=== PATIENT | male | born 1990 | race Caucasian/White ===

== ENCOUNTER 2017-10-01 03:57 | Emergency (ER) | payer BC ==
[2017-10-01] MEDS ORDERED: NS 0.9% 1000 ML* 1,000 ML IV ONE (04:10)
[2017-10-01] MEDS ORDERED: Metoclopramide IV* 5 MG/ML 2 ML VIAL IV SLOW PU ONE (04:11)
[2017-10-01] MEDS ORDERED: Diphenoxylat/Atrop 2.5-0.025M* 1 TAB PO ONE (04:11)
--- NOTE | 2017-10-01 04:13 | ED ---
Abdominal Pain/Male - HPI Summary HPI Summary: This patient is a 27 year old M presenting to ED with a chief complaint of lower abdominal/L flank pain since 0145 this morning. The patient rates the pain 3/10 in severity. Symptoms aggravated by nothing. Symptoms alleviated by Ibuprofen. Patient reports N/V/D and lower back pain and swelling. The patient reports he did not have dinner last night. - History of Current Complaint Chief Complaint: EDAbdPain Stated Complaint: FLANK PAIN Time Seen by Provider: 10/01/17 04:06 Hx Obtained From: Patient Onset/Duration: Sudden Onset, Lasting Hours, Still Present Timing: Constant, Lasting Hours Severity Initially: Moderate Severity Currently: Moderate Pain Intensity: 7 Pain Scale Used: 0-10 Numeric Location: Other - lower abdominal pain and L flank Aggravating Factor(s): Nothing Alleviating Factor(s): OTC Analgesics - ibuprofen Associated Signs And Symptoms: Positive: Other - Patient reports N/V/D and lower back pain and swelling. - Allergies/Home Medications Allergies/Adverse Reactions: Allergies Allergy/AdvReac Type Severity Reaction Status Date / Time No Known Allergies Allergy Verified 10/01/17 04:05 PMH/Surg Hx/FS Hx/Imm Hx Endocrine/Hematology History: Denies: Hx Diabetes Cardiovascular History: Denies: Hx Coronary Artery Disease, Hx Hypertension Infectious Disease History: No Infectious Disease History: Denies: Traveled Outside the [place] in Last 30 Days - Family History Known Family History: Positive: Diabetes Negative: Cardiac Disease, Hypertension - Social History Alcohol Use: Rare Substance Use Type: Reports: None Smoking Status (MU): Never Smoked Tobacco Review of Systems Positive: Abdominal Pain - lower abdominal/L flank pain , Vomiting, Diarrhea, Nausea Positive: Other - lower back pain and swelling All Other Systems Reviewed And Are Negative: Yes Physical Exam - Summary Physical Exam Summary: VITAL SIGNS: Reviewed. GENERAL: Patient is a well-developed and nourished MALE who is lying comfortable in the stretcher. Patient is not in any acute respiratory distress. HEAD AND FACE: No signs of trauma. No ecchymosis, hematomas or skull depressions. No sinus tenderness. EYES: PERRLA, EOMI x 2, No injected conjunctiva, no nystagmus. EARS: Hearing grossly intact. Ear canals and tympanic membranes are within normal limits. MOUTH: Oropharynx within normal limits. NECK: Supple, trachea is midline, no adenopathy, no JVD, no carotid bruit, no c- spine tenderness, neck with full ROM. CHEST: Symmetric, no tenderness at palpation LUNGS: Clear to auscultation bilaterally. No wheezing or crackles. CVS: Regular rate and rhythm, S1 and S2 present, no murmurs or gallops appreciated. ABDOMEN: Soft, non-tender. No signs of distention. No rebound no guarding, and no masses palpated. Bowel sounds are normal. EXTREMITIES: FROM in all major joints, no edema, no cyanosis or clubbing. NEURO: Alert and oriented x 3. No acute neurological deficits. Speech is normal and follows commands. SKIN: Dry and warm Triage Information Reviewed: Yes Vital Signs On Initial Exam: Initial Vitals Temp Pulse Resp BP Pulse Ox 96.1 F 54 16 134/70 100 10/01/17 03:59 10/01/17 03:59 10/01/17 03:59 10/01/17 03:59 10/01/17 03:59 Vital Signs Reviewed: Yes Diagnostics - Vital Signs Vital Signs Temp Pulse Resp BP Pulse Ox 10/01/17 03:59 96.1 F 54 16 134/70 100 - Laboratory Result Diagrams: 10/01/17 04:20 10/01/17 04:20 Lab Statement: Any lab studies that have been ordered have been reviewed, and results considered in the medical decision making process. Re-Evaluation - Re-Evaluation First Eval Re-Evaluation Time: 05:50 Comment: The patient feels better. Discussed discharge plan with the patient. Abdominal Pain Fem Course/Dx - Course Assessment/Plan: This patient is a 27 year old M presenting to ED with a chief complaint of lower abdominal/L flank pain since 0145 this morning. In the ED course, the patient was given Lomotil, Reglan, and fluids. The patient will be discharged with Rx Reglan and Dx of gastroenteritis. The patient is agreeable with this plan. - Diagnoses Differential Diagnosis/HQI/PQRI: Other - gastroenteritis Provider Diagnoses: Gastroenteritis Discharge - Sign-Out/Discharge Documenting (check all that apply): Patient Departure - Discharge Plan Condition: Stable Disposition: HOME Prescriptions: Metoclopramide TAB* [Reglan TAB*] 10 mg PO Q6H PRN #14 tab PRN Reason: Nausea/Vomiting Patient Education Materials: Gastroenteritis (ED) Referrals: Non Staff,Doctor [Medical Doctor] - (Follow up with your primary care physician in 1-2 days.) Additional Instructions: RETURN TO THE EMERGENCY DEPARTMENT FOR CHANGING OR WORSENING SYMPTOMS.
[2017-10-01 04:33] LABS: ABS Basophils 0 10^3/ul (0-0.2); ABS Eosinophils 0.1 10^3/ul (0-0.6); ABS Lymphocytes 1.7 10^3/ul (1.0-4.8); ABS Monocytes 0.3 10^3/ul (0-0.8); ABS Neutrophils 6.7 10^3/ul (1.5-7.7); ABS Nucleated RBC 0 10^3/ul; Eosinophil % 1.1 % (0-6); Hematocrit 40 % (42-52); Hemoglobin 13.3 g/dl (14.0-18.0); Lymphocyte % 19.1 % (25-47); Mean Corpuscular HGB Conc 34 g/dl (31-36); Mean Corpuscular Hemoglobin 29 pg (27-31); Mean Corpuscular Volume 86 fL (80-94); Mean Platelet Volume 9.1 um3 (7.4-10.4); Nucleated Red Blood Cells % 0; Platelet Count 246 10^3/ul (150-450); Red Blood Count 4.57 10^6/ul (4.00-5.40); Red Cell Distribution Width 13 % (10.5-15); White Blood Count 8.8 10^3/ul (3.5-10.8)
[2017-10-01 04:48] LABS: Urine Appearance Clear; Urine Blood Negative (Negative); Urine Color Yellow; Urine Ketones Negative (Negative); Urine Protein Negative (Negative); Urine Specific Gravity 1.029 (1.010-1.030); Urine Urobilinogen Negative (Negative)
[2017-10-01 04:48] LABS: EGFR Non-African American 71.3 (>60)
[2017-10-01] MEDS ORDERED: Ketorolac INJ* 30 MG/ML 1 ML VIAL IV PUSH ONE (05:06)
[2017-10-01 06:14] VITALS: BP 132/84
== END 2017-10-01 06:14 | disposition home or self-care (01) ==
LOC: ED 03:57
DX: K52.9 Noninfective gastroenteritis and colitis, unspecified (principal)
CPT/HCPCS: 36415; 80053; 81003; 83605; 83690; 83735; 85025; 86140; 96374; 96375; 99282; A9270-GY; J1885; J2765

== ENCOUNTER 2018-12-18 12:02 | Emergency (ER) | payer BC, OTHER ==
--- OUTSIDE RECORDS SUMMARY | 2018-12-18 13:04 | XMS REPORT | Continuity of Care Document ---
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 Medicine Problems Description No Information Available Social History Type Date Description Comments Sex Unknown Tobacco Use Start: Unknown Nonsmoker Smoking Status Reviewed: 12/03/18 Nonsmoker Allergies, Adverse Reactions, Alerts Description No Known Drug Allergies Medications Description No Active Medications Immunizations Description No Information Available Vital Signs Date Vital Result Comment 12/03/2018 12:59pm BP Systolic 130 mmHg BP Diastolic 70 mmHg Heart Rate 74 /min Body Temperature 98.6 F Respiratory Rate 16 /min Height 68 inches 5'8" Weight 285.00 lb BMI (Body Mass Index) 43.3 kg/m2 04/02/2017 2:09pm BP Systolic 142 mmHg BP Diastolic 72 mmHg Heart Rate 68 /min Body Temperature 98.6 F Height 68 inches 5'8" Weight 277.00 lb BMI (Body Mass Index) 42.1 kg/m2 Results Description No Information Available Procedures Description No Information Available Medical Devices Description No Information Available Encounters Description No Information Available Assessments Date Code Description Provider 12/03/2018 Z00.00 Encounter for general adult medical Pernell Izquierdo MD examination without abnormal findings 12/03/2018 Z68.41 Body mass index (BMI) 40.0-44.9, adult Pernell Izquierdo MD Plan of Treatment 12/03/2018 - Pernell Izquierdo MDZ00.00 Encounter for general adult medical examination without abnormal [id number] Body mass index (BMI) 40.0-44.9, adultAllComments:Medication Management Patient Understands medications he's taking? Yes No Are there Barriersto Adherence? Yes No Has the patient been asked about herbal supplements and therapies, and OTC meds? Yes No Functional Status Description No Information Available Mental Status Description No Information Available Referrals Refer to Reason for Referral Status Appt Date [facility] Bariatric surgery consult. LT Created [address] [facility] [facility] [place] [address] [phone]
--- NOTE | 2018-12-18 13:31 | ED ---
Skin Complaint - HPI Summary HPI Summary: Pt. is a 28 y.o male who presents to the ER for evaluation of right hand injury. Pt. states at work today a tubbing broke and Freon sprayed onto his right dorsal hand. Pt. immediately washed hand. Pt. denies exposure to face or mouth. Pt. denies pain, redness, swelling, blistering. Sxs are mild in severity. Pt. notes a small area of tingling in between 2nd and 3rd digits. Incident happened about 2 hours ago. - History of Current Complaint Chief Complaint: EDExtremityUpper Time Seen by Provider: 12/18/18 12:58 Stated Complaint: FREON EXPOSURE PER PT Hx Obtained From: Patient Pain Intensity: 0 - Allergy/Home Medications Allergies/Adverse Reactions: Allergies Allergy/AdvReac Type Severity Reaction Status Date / Time No Known Allergies Allergy Verified 10/01/17 04:05 Home Medications: Home Medications NK [No Home Medications Reported] 12/18/18 [History Confirmed 12/18/18] PMH/Surg Hx/FS Hx/Imm Hx Previously Healthy: Yes Endocrine/Hematology History: Denies: Hx Diabetes Cardiovascular History: Denies: Hx Coronary Artery Disease, Hx Hypertension Infectious Disease History: No Infectious Disease History: Denies: Traveled Outside the [place] in Last 30 Days - Family History Known Family History: Positive: Diabetes, Non-Contributory Negative: Cardiac Disease, Hypertension - Social History Occupation: Employed Full-time Lives: With Family Alcohol Use: Rare Substance Use Type: Reports: None Smoking Status (MU): Never Smoked Tobacco Review of Systems Positive: Other - freon to right hand Skin: Negative Positive: Paresthesia. Negative: Numbness All Other Systems Reviewed And Are Negative: Yes Physical Exam Triage Information Reviewed: Yes Vital Signs On Initial Exam: Initial Vitals Temp Pulse Resp BP Pulse Ox 98.2 F 86 17 143/82 94 12/18/18 12:11 12/18/18 12:11 12/18/18 12:11 12/18/18 12:11 12/18/18 12:11 Vital Signs Reviewed: Yes Appearance: Positive: Well-Appearing - Pt. sitting on chair in NAD. Skin: Positive: Warm, Dry Head/Face: Positive: Normal Head/Face Inspection Eyes: Positive: Normal, EOMI Neck: Positive: Supple Musculoskeletal: Positive: Other - Normal exam of right hand without pain, erythema, blisters, edema. Neurological: Positive: Normal, CN Intact II-III Psychiatric: Positive: Affect/Mood Appropriate Diagnostics - Vital Signs Vital Signs Temp Pulse Resp BP Pulse Ox 12/18/18 12:11 98.2 F 86 17 143/82 94 - Laboratory Lab Statement: Any lab studies that have been ordered have been reviewed, and results considered in the medical decision making process. Course/Dx - Course Course Of Treatment: Pt. presenting for evaluation after Freon exposure. Pt. has no skin changes after two hours. He denies pain. Pt. irrigated hand again in the ED. Case discussed briefly with Dr. Galindo. Will have pt. f.u with pcp in 2-3 days for recheck. Pt. to return to ER for pain, redness, swelling, blistering or if concerned. Pt. understands and agrees with plan. - Diagnoses Provider Diagnoses: Chemical exposure Discharge ED - Sign-Out/Discharge Documenting (check all that apply): Patient Departure Patient Received Moderate/Deep Sedation with Procedure: No - Discharge Plan Condition: Improved Disposition: HOME Patient Education Materials: Chemical Skin Burn (ED) Referrals: Pernell Izquierdo MD [Primary Care Provider] - Additional Instructions: Call your PCP on Thursday for a follow up appointment with in 2-3 days Return to ER for increased pain, skin blistering, redness, or if concerned - Billing Disposition and Condition Condition: IMPROVED Disposition: Home
[2018-12-18 13:55] VITALS: BP 126/79
== END 2018-12-18 13:48 | disposition home or self-care (01) ==
LOC: ED 12:02
DX: S69.91XA Unspecified injury of right wrist, hand and finger(s), initial encounter (principal); X58.XXXA Exposure to other specified factors, initial encounter; Y92.9 Unspecified place or not applicable; Z77.098 Contact with and (suspected) exposure to other hazardous, chiefly nonmedicinal, chemicals
CPT/HCPCS: 99282